=== PATIENT | female | born 1945 | race Caucasian/White ===

== ENCOUNTER 2017-01-26 02:46 | Emergency (ER) | payer MEDICARE ==
[~2017-01-26] VITALS: Ht 167.6 cm; Wt 74.0 kg
[~2017-01-26 02:46] MED LIST: ALPR.25 PO; CARV12.5 PO; GLUCTAB PO; LIVA1TAB PO; PRAS10 PO; PREV15CA20 PO; ST J81CH PO
[2017-01-26 02:51] VITALS: BP 124/75; PULSE 92; RESP 20; TEMP 99.5; O2SAT 93
[2017-01-26 02:56] VITALS: BP 124/75; PULSE 92; RESP 20; TEMP 99.5
[2017-01-26] MEDS ORDERED: SODIUM CHLOR 0.9% 1000 ML INJ 1,000 ML IV ONE (03:16)
[2017-01-26 03:17] VITALS: BP 124/74; PULSE 86; RESP 20; O2SAT 94
[2017-01-26] MEDS ORDERED: ONDANSETRON HCL 4 MG/2 ML VIAL IVP ONE (03:30)
[2017-01-26] MEDS ORDERED: SODIUM CHLORIDE 0.9% FLUSH 10 ML FLUSH IVF PRN (03:30)
[2017-01-26] MEDS ORDERED: CARV12.5 PO (03:44)
[2017-01-26] MEDS ORDERED: ASPI81CH CHEW (03:44)
[2017-01-26] MEDS ORDERED: LIVA4TAB PO (03:44)
[2017-01-26] MEDS ORDERED: INSU1INJ5 SQ (03:44)
[2017-01-26] MEDS ORDERED: LANS15CA PO (03:44)
[2017-01-26 03:46] VITALS: PULSE 85; RESP 20; O2SAT 94
--- NOTE | 2017-01-26 03:49 | PD ---
HPI Chief Complaint: GI Complaint Time Seen by Provider: 03:16 Travel History International Travel<30 days: No Contact w/Intl Traveler<30days: No Traveled to known affect area: No History of Present Illness HPI 71 year-old female presents to the emergency department by private transportation the care of her spouse for complaint of 3 days of nausea vomiting and diarrhea. Patient states symptoms began on Satur evening after returning home from [place]. Patient denies any dietary indiscretion well water ingestion or foreign travel. Spouse is had no similar symptoms. Patient denies fever or chills. states patient has complained of feeling cold which is atypical for her. Patient's had no hematemesis coffee-ground emesis or bilious emesis. Patient denies melena or hematochezia. Patient denies anorexia. Patient is been drinking water but any attempt to take other forms of oral hydration or oral intake results and vomiting. Patient states she took Imodium which has decreased amount of diarrhea. Patient's had no dysuria frequency or urgency. Patient denies chest pain or shortness of breath. Patient's had no change in medications. Patient has history of diabetes CAD with myocardial infarction in 2014 arthritis and hypertension. Patient is unable to identify exacerbating or alleviating factors. Patient has had abdominal pain that she rates 7/10 in intensity. Pain began as left flank pain but is now epigastric in nature. No prior history of gastritis peptic ulcer disease biliary colic cholelithiasis pancreatitis inflammatory bowel disease colitis or diverticulitis. [facility] Past Medical History Narrative Medical GERD diabetes dyslipidemia CAD with myocardial infarction in 2014 arthritis hypertension, hysterectomy cardiac catheterization stents oral surgery tonsillectomy sinus surgery; no alcohol use no tobacco use; nursing notes reviewed Arthritis: Yes Autoimmune Disease: Yes Anxiety: Yes Heart Rhythm Problems: Yes (Rapid heart beat in the past.) Cancer: No Cardiac Catheterization: Yes (05/2015) Cardiovascular Problems: Yes (Stents 05/2015) Chest Pain: Yes Diabetes: Yes Patient Takes Glucophage: No Diminished Hearing: No Endocrine: Yes GERD: Yes Hypertension: Yes Immune Disorder: Yes (EHLRS) Neurologic: No Respiratory: No Influenza Vaccination: No ?: Not Past Surgical History Abdominal Surgery: Yes (hysrectomy, 1978) Eye Surgery: Yes (muscles around eyes) Hysterectomy: Yes (complete) Oral Surgery: Yes (bilateral jaw surgery) Tonsillectomy: Yes Valve Replacement: Yes Other Surgery: Yes ("sinus surgery") Social History Alcohol Use: No Tobacco Use: No Substance Use: No Allergies-Medications (Allergen,Severity, Reaction): Coded Allergies: Iodine (Verified Allergy, Severe, "swell up", 05/04/15) Penicillin (Verified Allergy, Severe, "throat swells up", 05/04/15) Morphine (Verified Allergy, Intermediate, 05/04/15) Epinephrine (Verified Allergy, Unknown, Tachycardia, irritability, 01/26/17 ) Glimepiride (Verified Allergy, Unknown, 01/26/17) Sulfa based medication HMG-CoA Reductase Inhibitors (Verified Allergy, Unknown, Cramping, 01/26/17 ) Potassium (Verified Allergy, Unknown, 01/26/17) vomiting Sulfa (Verified Allergy, Unknown, 05/04/15) Versed (Verified Allergy, Unknown, 01/26/17) Nitroglycerin (Verified Adverse Reaction, Severe, "severe headache,ocular migraines", 05/04/15) Reported Meds & Prescriptions Reported Meds & Active Scripts Active Reported Aspirin 81 Mg Chew 81 Mg CHEW DAILY Levemir Flextouch Pen Inj (Insulin Detemir) 300 unit/3 ML Pen 30 Units SQ DAILY Livalo (Pitavastatin) 4 Mg Tab 4 Mg PO DAILY Coreg (Carvedilol) 12.5 Mg Tab 12.5 Mg PO BID Lansoprazole 15 Mg Capdr 15 Mg PO DAILY Review of Systems Except as stated in HPI: all other systems reviewed are Neg General / Constitutional: No: Fever, Chills HENT: No: Congestion Cardiovascular: No: Chest Pain or Discomfort Respiratory: No: Shortness of Breath Gastrointestinal: Positive: Nausea, Vomiting, Diarrhea, Abdominal Pain Genitourinary: No: Dysuria, Flank Pain Musculoskeletal: No: Myalgias, Arthralgias Skin: No Rash Neurologic: Positive: Weakness Psychiatric: No: Anxiety Endocrine: No: Heat Intolerance Hematologic/Lymphatic: No: Easy Bruising Physical Exam Narrative GENERAL: Elderly female in no acute distress no respiratory distress SKIN: Warm and dry. HEAD: Normocephalic. EYES: No scleral icterus. No injection or drainage. NECK: Supple, trachea midline. No JVD or lymphadenopathy. CARDIOVASCULAR: Regular rate and rhythm without murmurs, gallops, or rubs. RESPIRATORY: Breath sounds equal bilaterally. No accessory muscle use. GASTROINTESTINAL: Abdomen soft, diffusely tender and no guarding or rebound, nondistended. No palpable pulsatile mass. MUSCULOSKELETAL: No cyanosis, or edema. Radial and dorsalis pedis pulses 2+ to palpation bilaterally. BACK: Nontender without obvious deformity. No CVA tenderness. Data Data Last Documented VS Vital Signs Date Time Temp Pulse Resp B/P Pulse Ox O2 Delivery O2 Flow Rate FiO2 01/26/17 05:08 80 16 119/74 93 Room Air 01/26/17 02:56 99.5 Orders Complete Blood Count With Diff (01/26/17 03:16) Comprehensive Metabolic Panel (01/26/17 03:16) Urinalysis - C+S If Indicated (01/26/17 03:16) Lipase (01/26/17 03:16) Iv Access Insert/Monitor (01/26/17 03:16) Ecg Monitoring (01/26/17 03:16) Oximetry (01/26/17 03:16) Ondansetron Inj (Zofran Inj) (01/26/17 03:30) Sodium Chlor 0.9% 1000 Ml Inj (Ns 1000 M (01/26/17 03:16) Sodium Chloride 0.9% Flush (Ns Flush) (01/26/17 03:30) Enteric Path (Stool) (01/26/17 03:16) Chest, Single Ap (01/26/17 03:16) Electrocardiogram (01/26/17 ) Troponin I (01/26/17 03:16) Ckmb (Isoenzyme) Profile (01/26/17 03:16) Ct Abd/Pel W/O Iv Contrast (01/26/17 ) Urine Culture (01/26/17 04:28) Ketorolac Inj (Toradol Inj) (01/26/17 05:00) Ceftriaxone Inj (Rocephin Inj) (01/26/17 05:00) Labs Laboratory Tests Test 01/26/17 01/26/17 03:05 04:28 White Blood Count 12.0 TH/MM3 Red Blood Count 4.61 MIL/MM3 Hemoglobin 13.4 GM/DL Hematocrit 40.4 % Mean Corpuscular Volume 87.7 FL Mean Corpuscular Hemoglobin 29.1 PG Mean Corpuscular Hemoglobin 33.2 % Concent Red Cell Distribution Width 12.7 % Platelet Count 186 TH/MM3 Mean Platelet Volume 8.3 FL Neutrophils (%) (Auto) 81.2 % Lymphocytes (%) (Auto) 7.5 % Monocytes (%) (Auto) 9.4 % Eosinophils (%) (Auto) 0.1 % Basophils (%) (Auto) 1.8 % Neutrophils # (Auto) 9.8 TH/MM3 Lymphocytes # (Auto) 0.9 TH/MM3 Monocytes # (Auto) 1.1 TH/MM3 Eosinophils # (Auto) 0.0 TH/MM3 Basophils # (Auto) 0.2 TH/MM3 CBC Comment DIFF FINAL Differential Comment Sodium Level 132 MEQ/L Potassium Level 4.0 MEQ/L Chloride Level 97 MEQ/L Carbon Dioxide Level 24.1 MEQ/L Anion Gap 11 MEQ/L Blood Urea Nitrogen 20 MG/DL Creatinine 1.40 MG/DL Estimat Glomerular Filtration 37 ML/MIN Rate Random Glucose 205 MG/DL Calcium Level 8.2 MG/DL Total Bilirubin 0.7 MG/DL Aspartate Amino Transf 18 U/L (AST/SGOT) Alanine Aminotransferase 19 U/L (ALT/SGPT) Alkaline Phosphatase 88 U/L Total Creatine Kinase 66 U/L Troponin I LESS THAN 0.02 NG/ML Total Protein 7.4 GM/DL Albumin 2.9 GM/DL Lipase 123 U/L Urine Color YELLOW Urine Turbidity MOD Urine pH 5.5 Urine Specific Jacobson 1.015 Urine Protein 100 mg/dL Urine Glucose (UA) 500 mg/dL Urine Ketones 15 mg/dL Urine Occult Blood MOD Urine Nitrite POS Urine Bilirubin NEG Urine Leukocyte Esterase MOD Urine WBC INNUM /hpf Urine WBC Clumps MANY Urine Squamous Epithelial 0-5 /hpf Cells Urine Bacteria MOD /hpf Urine Hyaline Casts 0-2 /lpf Urine Mucus OCC /lpf Microscopic Urinalysis Comment CULTURE INDICATED MDM Medical Decision Making Medical Screen Exam Complete: Yes Emergency Medical Condition: Yes Medical Record Reviewed: Yes Interpretation(s) EKG: Normal sinus rhythm rate 87 and inverted T wave inferiorly with QS inferiorly age-indeterminate (prior inferior IN w stent 2014); no acute ST elevation CBC & BMP Diagram 01/26/17 03:05 UA: Positive nitrites positive leukocyte esterase-positive WBCs positive clumped WBCs positive bacteria; culture indicated; patient also with dysuria and ketonuria Troponin I: Less than 0.02 Differential Diagnosis Abdominal pain, gastritis, peptic ulcer disease, choledocholithiasis, cholecystitis, pancreatitis, colitis, diverticulitis, gastroenteritis, dehydration, acute kidney injury, UTI, renal colic, anemia, ACS, myocardial infarction, aortic dissection Narrative Course Patient is on monitoring analyst IV access obtained specimens collected and sent for resulting EKG performed which shows sinus rhythm with age-indeterminate inferior infarct patient snowboarder IV fluids and Zofran Lab values resulted patient identified to have leukocytosis by automated differential as well as abnormal urinalysis consistent with urinary tract infection and possible early pyelonephritis although CT abdomen and pelvis reveals no. Effort inflammatory changes and no acute intra-abdominal or intrapelvic process; metabolic panel remarkable for renal insufficiency consistent with dehydration elevated glucose of 205 this is a random glucose and patient is dehydrated which made reflects some of the elevation normal bicarbonate and normal anion gap. Patient troponin I is less than 0.02, not elevated. Patient receiving bolus of normal saline will be given Rocephin 1 g IV piggyback patient reports no adverse or allergic reaction to cephalosporins. Patient given oral trial of hydration. Plan is to discharge patient to home with prescription for oral antibiotic medication to take as needed for nausea vomiting and recommendation for close follow-up with primary care provider. Patient is aware that culture results will be available in 48 hours regarding organism and sensitivity on urine culture. Patient is stable for outpatient management. Diagnosis Primary Impression: UTI (urinary tract infection) Qualified Code: N30.00 - Acute cystitis without hematuria Additional Impressions: Gastroenteritis Renal insufficiency Referrals: Primary Care Physician 1 day Patient Instructions: General Instructions Med/Other Pt SpecificInfo: Prescription(s) given Scripts Ondansetron Odt (Zofran Odt)4 Mg Tab4 Mg SL Q6HR PRN (Nausea/Vomiting) #12 TAB Ref 0 Prov:Jessika Stover MD 01/26/17 Cefuroxime (Ceftin)500 Mg [id number] Mg PO BID 10 Days Ref 0 Prov:Jessika Stover MD 01/26/17 Disposition: 01 DISCHARGE HOME Condition: Stable Jessika Stover MD Jan 26, 2017 03:49
[2017-01-26 03:52] LABS: AUTOMATED NEUTROPHIL # 9.8 TH/MM3 (1.8-7.7); BASOPHIL # 0.2 TH/MM3 (0-0.2); BASOPHIL % 1.8 % (0.0-2.0); EOSINOPHIL % 0.1 % (0.0-4.0); HEMATOCRIT 40.4 % (35.0-46.0); LYMPH % 7.5 % (9.0-44.0); LYMPHOCYTE # 0.9 TH/MM3 (1.0-4.8); MEAN CELL VOLUME 87.7 FL (80.0-100.0); MEAN CORPUSCULAR HEMOGLOBIN 29.1 PG (27.0-34.0); MEAN CORPUSCULAR HGB CONC 33.2 % (32.0-36.0); MONO % 9.4 % (0.0-8.0); NEUT % 81.2 % (16.0-70.0); PLATELET COUNT 186 TH/MM3 (150-450); RED BLOOD COUNT 4.61 MIL/MM3 (4.00-5.30); RED CELL DISTRIBUTION WIDTH 12.7 % (11.6-17.2)
--- NOTE | 2017-01-26 03:54 | RADHPO ---
EXAM DATE/TIME: 01/26/2017 03:34 [facility] COMPARISON: CHEST SINGLE AP, May 04, 2015, 13:41. INDICATIONS : Short of breath. MEDICAL HISTORY : None. SURGICAL HISTORY : Coronary artery stent. ENCOUNTER: Initial ACUITY: 1 day PAIN SCORE: 0/10 LOCATION: Bilateral chest FINDINGS: A single view of the chest demonstrates the lungs to be symmetrically aerated without evidence of mas s, infiltrate or effusion. The cardiomediastinal contours are unremarkable. Osseous structures are intact. CONCLUSION: No acute intrathoracic disease. Stable examination. Theron Milligan MD on January 26, 2017 at 3:52 Board Certified Radiologist. This report was verified electronically.
[2017-01-26 04:05] LABS: HEMO FLAGS DIFF FINAL
[2017-01-26 04:08] LABS: CHLORIDE 97 MEQ/L (98-107); SODIUM (NA) 132 MEQ/L (136-145)
[2017-01-26 04:12] LABS: ANION GAP 11 MEQ/L (5-15); BICARBONATE 24.1 MEQ/L (21.0-32.0); BLOOD UREA NITROGEN 20 MG/DL (7-18)
[2017-01-26 04:15] LABS: ALT (GPT) 19 U/L (10-53); AST (GOT) 18 U/L (15-37); GLOMERULAR FILTRATION RATE 37 ML/MIN (>89)
[2017-01-26 04:16] LABS: TOTAL BILIRUBIN ADULT 0.7 MG/DL (0.2-1.0)
[2017-01-26 04:18] LABS: ALKALINE PHOSPHATASE 88 U/L (45-117)
[2017-01-26 04:34] LABS: CREATINE KINASE 66 U/L (26-192)
[2017-01-26 04:34] LABS: GLUCOSE,URINE 500 mg/dL (NEG); KETONE, URINE 15 mg/dL (NEG); PH, URINE 5.5 (5.0-8.5)
[2017-01-26 04:39] LABS: BLOOD, URINE MOD (NEG); NITRITE,URINE POS (NEG)
[2017-01-26 04:40] LABS: URINE COLOR YELLOW (YELLW/STRAW)
[2017-01-26 04:41] LABS: BACTERIA, URINE MOD /hpf; MUCUS URINE OCC /lpf (OCC); SQUAMOUS EPITHELIAL CELL URINE 0-5 /hpf (0-5); WBC, URINE INNUM /hpf (0-5)
[2017-01-26 04:43] LABS: COMMENT (UR) CULTURE INDICATED; CULTURE IF INDICATED CULTURE INDICATED; HYALINE CAST, URINE 0-2 /lpf (RARE)
--- NOTE | 2017-01-26 04:47 | RADHPO ---
EXAM DATE/TIME: 01/26/2017 04:24 [facility] COMPARISON: No previous studies available for comparison. INDICATIONS : Nausea, vomiting and diarrhea for three days. ORAL CONTRAST: No oral contrast ingested. RADIATION DOSE: 11.28 CTDIvol (mGy) MEDICAL HISTORY : Diabetes mellitus type 2. Gastroesophageal reflux disease. Hypertension. SURGICAL HISTORY : Hysterectomy. ENCOUNTER: Initial ACUITY: 3 days PAIN SCALE: 7/10 LOCATION: upper quadrant midline. TECHNIQUE: Volumetric scanning of the abdomen and pelvis was performed. Using automated exposure control and ad justment of the mA and/or kV according to patient size, radiation dose was kept as low as reasonably achievable to obtain optimal diagnostic quality images. FINDINGS: LOWER LUNGS: The visualized lower lungs are clear. There is a moderate hiatal hernia the GE junction. LIVER: Homogeneous density. There is a single 1.8 cm low-density lesion in the left lobe of the liver. Ther e is no dilation of the biliary tree. No calcified gallstones. SPLEEN: Normal size without lesion. PANCREAS: Within normal limits. KIDNEYS: Normal in size and shape. There is no mass, stone, or hydronephrosis. ADRENAL GLANDS: Within normal limits. VASCULAR: There is no aortic aneurysm. BOWEL/MESENTERY: The stomach, small bowel, and colon demonstrate no acute abnormality. There is no free intraperitone al air or fluid. No inflammatory changes are seen. There is some scattered diverticula along the sigm oid colon. There is stool within the colon. ABDOMINAL WALL: Within normal limits. RETROPERITONEUM: There is no lymphadenopathy. BLADDER: No wall thickening or mass. No bladder stones. REPRODUCTIVE: Within normal limits. INGUINAL: There is no lymphadenopathy or hernia. MUSCULOSKELETAL: Within normal limits for patient age. CONCLUSION: 1. Moderate hiatal hernia the GE junction. 2. 1.8 cm low-density lesion in the left lobe of the liver. This is most likely a focal hepatic cyst versus hemangioma. 3. Scattered diverticulosis of the sigmoid colon without inflammatory changes. 4. Bowel gas pattern is within normal limits. Theron Milligan MD on January 26, 2017 at 4:41 Board Certified Radiologist. This report was verified electronically.
[2017-01-26] MEDS ORDERED: cefTRIAXone INJ 1,000 MG in SODIUM CHLORIDE 0.9% INJ 100 ML IV ONE (05:00)
[2017-01-26] MEDS ORDERED: KETOROLAC TROMETHAMINE 30 MG/ML (IVP) VIAL IV PUSH ONE (05:00)
[2017-01-26 05:08] VITALS: BP 119/74; PULSE 80; RESP 16; O2SAT 93
[2017-01-26] MEDS ORDERED: ZOFR4TAB3 SL (05:58)
[2017-01-26] MEDS ORDERED: CEFT500T3 PO (05:58)
--- NOTE | 2017-01-27 13:55 | EKG ---
Date Performed: 01/26/2017 Time Performed: 03:36:34 PTAGE: 71 years EKG: Sinus rhythm . Inferior T wave changes are nonspecific Borderline ECG Compared to prior tracing no significant [place] nge PREVIOUS TRACING : 05/05/2015 05.49 DOCTOR: Kirby Atkinson Interpretating Date/Time 01/27/2017 13:55:10
== END 2017-01-26 06:26 | disposition home or self-care (01) ==
LOC: PHED 02:46
DX: N30.00 Acute cystitis without hematuria (principal); K52.9 Noninfective gastroenteritis and colitis, unspecified; N28.9 Disorder of kidney and ureter, unspecified; B96.20 Unspecified Escherichia coli [E. coli] as the cause of diseases classified elsewhere; D72.829 Elevated white blood cell count, unspecified; R94.31 Abnormal electrocardiogram [ECG] [EKG]; E11.9 Type 2 diabetes mellitus without complications; I10 Essential (primary) hypertension; E78.5 Hyperlipidemia, unspecified; I25.2 Old myocardial infarction; Z79.4 Long term (current) use of insulin; Z87.39 Personal history of other diseases of the musculoskeletal system and connective tissue; Z86.79 Personal history of other diseases of the circulatory system; Z86.2 Personal history of diseases of the blood and blood-forming organs and certain disorders involving the immune mechanism; Z87.19 Personal history of other diseases of the digestive system; Z86.59 Personal history of other mental and behavioral disorders
CPT/HCPCS: 71010; 74176; 80053; 81001; 82550; 83690; 84484; 85025; 87077; 87086; 87186; 93005; 96361; 96365; 96375; 99284; J0696; J1885; J2405; J7030

== ENCOUNTER 2017-12-04 12:45 | Emergency (ER) | payer MEDICARE ==
[~2017-12-04] VITALS: Ht 167.6 cm; Wt 78.6 kg
[~2017-12-04 12:45] MED LIST changes: -ALPR.25 PO; +ASPI-516 CHEW; +CEFT500T3 PO; -GLUCTAB PO; +INSU1INJ5 SQ; +LANS15CA PO; -LIVA1TAB PO; +LIVA4TAB PO; -PRAS10 PO; -PREV15CA20 PO; -ST J81CH PO; +ZOFR4TAB3 SL
[2017-12-04 13:08] VITALS: BP 132/65; PULSE 66; RESP 16; TEMP 97.8; O2SAT 92
--- NOTE | 2017-12-04 14:09 | PD ---
HPI Chief Complaint: GI Complaint Time Seen by Provider: 14:06 Travel History International Travel<30 days: No Contact w/Intl Traveler<30days: No Traveled to known affect area: No History of Present Illness HPI c/o flu like symtoms, cough anc congestion, n/v/d x 5 days..... Patient gives a history about her grandson who lives with her as well as her mother were diagnosed with influenza and given treatment. However, only those two got treatment. Patient has developed the symptoms approximately 5 days ago, which is approximately 7 days from the time that her grandson was diagnosed. She has had close contact with them all throughout this past week. There is an amazing increments list of allergies as listed by Past medical history significant for hypertension [place] with stents, hysterectomy GERD anxiety diabetes apparently rapid heartbeat in the past but unable to name and rhythm. PFSH Past Medical History Hx Anticoagulant Therapy: Yes (asa 81mg) Arthritis: Yes Autoimmune Disease: Yes Anxiety: Yes Heart Rhythm Problems: Yes (Rapid heart beat in the past.) Cancer: No Cardiac Catheterization: Yes (05/2015) Cardiovascular Problems: Yes (htn on meds, [place] with 3 stents) Chest Pain: Yes Diabetes: Yes (type 2) Diminished Hearing: No Endocrine: Yes GERD: Yes Hypertension: Yes Immune Disorder: Yes (EHLRS) Neurologic: No Respiratory: No ?: Not Past Surgical History Abdominal Surgery: Yes (hysrectomy, 1978) Eye Surgery: Yes (muscles around eyes) Hysterectomy: Yes Oral Surgery: Yes (bilateral jaw surgery) Tonsillectomy: Yes Valve Replacement: Yes Other Surgery: Yes ("sinus surgery") Social History Alcohol Use: No Tobacco Use: No Substance Use: No Allergies-Medications (Allergen,Severity, Reaction): Coded Allergies: codeine (Verified Allergy, Severe, n/v, 12/04/17) iodine (Unverified Allergy, Severe, "swell up", 05/17/17) penicillin G (Unverified Allergy, Severe, "throat swells up", 05/17/17) povidone-iodine (Unverified Allergy, Severe, "swell up", 05/17/17) sodium iodide (Unverified Allergy, Severe, "swell up", 05/17/17) sodium iodide (Unverified Allergy, Severe, "swell up", 05/17/17) morphine (Unverified Allergy, Intermediate, 05/17/17) Sulfa (Sulfonamide Antibiotics) (Unverified Allergy, Unknown, 05/17/17) amlodipine (Unverified Allergy, Unknown, Cramping, 12/04/17) atorvastatin (Unverified Allergy, Unknown, Cramping, 12/04/17) epinephrine (Unverified Allergy, Unknown, Tachycardia, irritability, ) glimepiride (Unverified Allergy, Unknown, 12/04/17) Sulfa based medication midazolam (Unverified Allergy, Unknown, 12/04/17) potassium (Unverified Allergy, Unknown, 12/04/17) vomiting potassium bicarbonate (Unverified Allergy, Unknown, 12/04/17) vomiting potassium chloride (Unverified Allergy, Unknown, 12/04/17) vomiting potassium iodide (Unverified Allergy, Unknown, 12/04/17) vomiting potassium phosphate (Unverified Allergy, Unknown, 12/04/17) vomiting pravastatin (Unverified Allergy, Unknown, Cramping, 12/04/17) simvastatin (Unverified Allergy, Unknown, Cramping, 12/04/17) nitroglycerin (Unverified Adverse Reaction, Severe, "severe headache, ocular migraines", 12/04/17) Reported Meds & Prescriptions Reported Meds & Active Scripts Active Zofran Odt (Ondansetron Odt) 4 Mg Tab 4 Mg SL Q6HR PRN Ceftin (Cefuroxime Axetil) 500 Mg Tab 500 Mg PO BID 10 Days Reported Aspirin 81 Mg Chew 81 Mg CHEW DAILY Levemir Flextouch Pen Inj (Insulin Detemir) 300 unit/3 ML Pen 30 Units SQ DAILY Livalo (Pitavastatin) 4 Mg Tab 4 Mg PO DAILY Coreg (Carvedilol) 12.5 Mg Tab 12.5 Mg PO BID Lansoprazole 15 Mg Capdr 15 Mg PO DAILY Review of Systems General / Constitutional: No: Fever Eyes: Positive: Diploplia HENT: No: Headaches Cardiovascular: No: Chest Pain or Discomfort Respiratory: No: Shortness of Breath Gastrointestinal: No: Abdominal Pain Genitourinary: No: Dysuria Musculoskeletal: No: Pain Skin: No Rash Neurologic: No: Weakness Psychiatric: No: Depression Endocrine: No: Polydipsia Hematologic/Lymphatic: No: Easy Bruising Physical Exam Narrative GENERAL: SKIN: Warm and dry. HEAD: Atraumatic. Normocephalic. EYES: Pupils equal and round. No scleral icterus. No injection or drainage. ENT: No nasal bleeding or discharge. Mucous membranes pink and moist. Clear rhinorrhea. Clear oropharynx NECK: Trachea midline. No JVD. CARDIOVASCULAR: Regular rate and rhythm. RESPIRATORY: No accessory muscle use. Clear to auscultation. Breath sounds equal bilaterally. GASTROINTESTINAL: Abdomen soft, non-tender, nondistended. Hyperactive bowel sounds MUSCULOSKELETAL: Extremities without clubbing, cyanosis, or edema. No obvious deformities. NEUROLOGICAL: Awake and alert. No obvious cranial nerve deficits. Motor grossly within normal limits. Five out of 5 muscle strength in the arms and legs. Normal speech. PSYCHIATRIC: Appropriate mood and affect; insight and judgment normal. Data Data Last Documented VS Vital Signs Date Time Temp Pulse Resp B/P (MAP) Pulse Ox O2 Delivery O2 Flow Rate FiO2 12/04/17 15:35 78 18 140/79 (99) 97 Room Air 12/04/17 13:08 97.8 Orders Orders Influenzae A/B Antigen (12/04/17 14:33) Chest, Single Ap (12/04/17 14:33) MDM Medical Decision Making Medical Screen Exam Complete: Yes Emergency Medical Condition: Yes Medical Record Reviewed: Yes Differential Diagnosis Influenza versus URI versus gastroenteritis versus viral versus bacterial versus pneumonia atypical type Narrative Course Patient's chest x-ray was reviewed does not show any evidence of pneumothorax, pneumonia, or pleural effusion. Flu test is positive Diagnosis Primary Impression: Influenza Patient Instructions: General Instructions, Influenza (DC) Scripts Diphenoxylate-Atropine (Lomotil) 2.5-0.025 Mg Tab 1 TAB PO Q6H Y for DIARRHEA, #15 TAB 0 Refills Prov: Say Segura MD 12/04/17 Oseltamivir (Tamiflu) 75 Mg Cap 75 MG PO BID for Mgmt Viral Infection for 5 Days, #10 CAP 0 Refills Prov: Say Segura MD 12/04/17 Disposition: 01 DISCHARGE HOME Condition: Stable Say Segura MD Dec 04, 2017 14:09
[2017-12-04 15:35] VITALS: BP 140/79; PULSE 78; RESP 18; O2SAT 97
--- NOTE | 2017-12-04 15:45 | RADRPT ---
EXAM DATE/TIME: 12/04/2017 15:31 [facility] COMPARISON: CHEST SINGLE AP, January 26, 2017, 3:34. INDICATIONS : Cough, pain with cough MEDICAL HISTORY : Diabetes mellitus type II. SURGICAL HISTORY : cardiac stents ENCOUNTER: Initial ACUITY: 4 - 6 days PAIN SCORE: 5/10 LOCATION: Bilateral chest FINDINGS: A single view of the chest demonstrates the lungs to be symmetrically aerated without evidence of mas s, infiltrate or effusion. Retrocardiac density consistent with a hiatal hernia. The cardiomediastin al contours are unremarkable. Osseous structures are intact. CONCLUSION: No acute disease. Edward Dominguez Jr., MD on December 04, 2017 at 15:43 Board Certified Radiologist. This report was verified electronically.
[2017-12-04] MEDS ORDERED: OSEL75 PO (15:54)
[2017-12-04] MEDS ORDERED: LOMO2.5T PO (15:55)
[2017-12-04] MEDS ORDERED: DIPHENOXYLATE/ATROPINE 2.5 MG/0.025 MG TAB PO ONE (16:00)
[2017-12-04] MEDS ORDERED: ONDANSETRON ODT 4 MG TAB PO ONE (16:00)
[2017-12-04] MEDS ORDERED: OSELTAMIVIR PHOSPHATE 75 MG CAP PO ONE (16:00)
[2017-12-04 17:13] VITALS: BP 142/77
== END 2017-12-04 17:00 | disposition home or self-care (01) ==
LOC: PHED 12:45
DX: J10.1 Influenza due to other identified influenza virus with other respiratory manifestations (principal); M19.90 Unspecified osteoarthritis, unspecified site; I10 Essential (primary) hypertension; E11.9 Type 2 diabetes mellitus without complications; Z79.82 Long term (current) use of aspirin; Z95.5 Presence of coronary angioplasty implant and graft; Z79.4 Long term (current) use of insulin
CPT/HCPCS: 71045; 87804; 99284